=== PATIENT | female | born 1995 | race Caucasian/White ===

== ENCOUNTER 2018-01-09 19:09 | Emergency (ER) | payer OTHER ==
[2018-01-09 19:18] VITALS: BP 145/87; PULSE 84; RESP 16; TEMP 98.5; O2SAT 97
--- NOTE | 2018-01-09 20:09 | C.PDOC ---
History Of Present Illness 22 yo female c/o right arm pain s/p trip and fall in her room just prior to arrival. Notes she fell on her right arm and now has pain with movement. No change in sensation. Right hand dominant. States "I think I sprained it." Time Seen by Provider: 01/09/18 19:20 Chief Complaint (Nursing): Upper Extremity Problem/Injury History Per: Patient History/Exam Limitations: no limitations Onset/Duration Of Symptoms: Mins Current Symptoms Are (Timing): Still Present Past Medical History Vital Signs: Last Vital Signs Temp 98.5 F 01/09/18 19:13 Pulse 84 01/09/18 19:13 Resp 16 01/09/18 19:13 BP 145/87 01/09/18 19:13 Pulse Ox 97 01/09/18 20:09 Family History: States: Unknown Family Hx - Social History Hx Alcohol Use: Yes Hx Substance Use: No Review Of Systems Constitutional: Negative for: Fever Cardiovascular: Negative for: Chest Pain Musculoskeletal: Positive for: Arm Pain Neurological: Negative for: Weakness, Numbness Physical Exam - Physical Exam Appears: Well, Non-toxic, No Acute Distress Skin: Normal Color, Warm, Dry Head: Atraumatic, Normacephalic Eye(s): bilateral: Normal Inspection, PERRL, EOMI Nose: Normal Oral Mucosa: Moist Neck: Normal, Normal ROM, Supple Chest: Symmetrical Respiratory: No Accessory Muscle Use Back: Normal Inspection Extremity: Normal ROM, Tenderness (proximal forearm and posterior elbow), Capillary Refill (<2 sec) Extremity: Bilateral: Normal Color And Temperature, Normal ROM Pulses: Left Radial: Normal, Right Radial: Normal Neurological/Psych: Oriented x3, Normal Speech, Normal Motor, Normal Sensation ED Course And Treatment O2 Sat by Pulse Oximetry: 97 - Other Rad Elbow XR X-Ray: Interpreted by Me, Viewed By Me Interpretation: No fx or dislocation, small anterior and posterior fat pad Progress Note: Emanuel wrap and sling applied. Pt was instructed RICe and follow up with ortho in1-2 days. Disposition - Disposition Referrals: Michael Blair MD [Staff Provider] - Disposition: HOME/ ROUTINE Disposition Time: 20:07 Condition: STABLE Additional Instructions: Rest, ice and elevate the area. Follow up with your primary medical doctor or clinic in 2-5 days for further evaluation. Take medications as prescribed. Return to the emergency department at any time if symptoms persist or worsen. Instructions: Elbow Sprain (ED) Forms: [employer] (Polish), Work Excuse - Clinical Impression Clinical Impression: Contusion of arm, right
--- NOTE | 2018-01-10 09:52 | RAD ---
PROCEDURE: Radiographs of the right elbow. HISTORY: r/o fx COMPARISON: No prior. FINDINGS: BONES: A radial head/neck impaction fracture with radio capitellar joint extension is present. JOINTS: Normal. No osteoarthritis. SOFT TISSUES: Soft tissue swell JOINT EFFUSION: Present OTHER FINDINGS: None. IMPRESSION: A radial head/neck impaction fracture with radio capitellar joint extension is present. . No dislocation. Associated effusion Comments: Findings were called in to the ER and directly discussed with Dr. Martinez on 01/10/2018 at 9:45 a.m.
--- NOTE | 2018-01-10 09:54 | RAD ---
PROCEDURE: Radiographs of the Right Forearm HISTORY: r/o fx COMPARISON: Same-day right elbow x-ray TECHNIQUE: Frontal and lateral views obtained. FINDINGS: BONES: A radial head/neck impaction fracture with radio capitellar joint extension is present. . No dislocation. JOINT SPACES: No arthrosis. Right elbow joint effusion present OTHER FINDINGS: None. IMPRESSION: A radial head/neck impaction fracture with radio capitellar joint extension is present. . No dislocation. Associated effusion Comments: Findings were called in to the ER and directly discussed with Dr. Martinez on 01/10/2018 at 9:45 a.m.
== END 2018-01-09 20:14 | disposition home or self-care (01) ==
LOC: C.ER 19:09
DX: S40.021A Contusion of right upper arm, initial encounter (principal); W01.0XXA Fall on same level from slipping, tripping and stumbling without subsequent striking against object, initial encounter

== ENCOUNTER 2018-01-10 10:27 | Emergency (ER) | payer OTHER ==
[2018-01-10 11:01] VITALS: RESP 20
--- NOTE | 2018-01-10 11:59 | C.PDOC ---
History Of Present Illness 22 yo female, presented to the emergency department last night with complaints of right arm pain s/p trip and fall in her room. Notes she fell on her right arm and now has pain with movement. No change in sensation. Right hand dominant. Patient was called back after being discharged due to fracture and need for splinting. Patient denies any new complaints at this time. Time Seen by Provider: 01/10/18 11:48 Chief Complaint (Nursing): Upper Extremity Problem/Injury History Per: Patient History/Exam Limitations: no limitations Current Symptoms Are (Timing): Still Present Past Medical History Reviewed: Historical Data, Nursing Documentation, Vital Signs Vital Signs: Last Vital Signs Temp 98.8 F 01/10/18 12:39 Pulse 61 01/10/18 12:39 Resp 20 01/10/18 12:39 BP 107/71 01/10/18 12:39 Pulse Ox 99 01/10/18 12:55 Family History: States: No Known Family Hx - Social History Hx Alcohol Use: Yes Hx Substance Use: No - Immunization History Hx Tetanus Toxoid Vaccination: No Hx Influenza Vaccination: No Hx Pneumococcal Vaccination: No Review Of Systems Constitutional: Negative for: Fever Musculoskeletal: Positive for: Arm Pain Neurological: Negative for: Weakness, Numbness Physical Exam - Physical Exam Appears: Non-toxic, No Acute Distress Skin: Warm, Dry, No Ecchymosis Head: Atraumatic, Normacephalic Eye(s): bilateral: Normal Inspection Neck: Normal ROM Chest: Symmetrical Extremity: Capillary Refill (<2 seconds), No Deformity, No Swelling, Other ( Tenderness to lateral and dorsal elbow, swellint to right elbow, limited ROM secondary to pain) Pulses: Right Radial: Normal Neurological/Psych: Oriented x3, Normal Speech Gait: Steady ED Course And Treatment O2 Sat by Pulse Oximetry: 99 (RA) Pulse Ox Interpretation: Normal Medical Decision Making Medical Decision Making: Impression 22y/o F called back to ER for fracture to R elbow Plan: * Splinting R elbow Posterior orthopglass splint applied to right elbow by renal technician and checked by me. Arm slin applied. Patient discharged for outpatient f/u with ortho/PMD. All questions answered. Patient agrees with plan. Disposition Counseled Patient/Family Regarding: Diagnosis, Need For Followup, Rx Given - Disposition Referrals: Michael Blair MD [Staff Provider] - Disposition: HOME/ ROUTINE Disposition Time: 12:35 Condition: STABLE Additional Instructions: Your xray shows a fracture. It is very important you follow up with orthopedic within 1-4 days. A splint has been applied which is a temporary cast. Do not wet splint, keep out of bath, and consider plastic bag. Take pain medication as needed. Seek medical attention if develop any numbness or pins and needle sensation. Prescriptions: oxyCODONE/Acetaminophen [Percocet 5/325 mg Tab] 1 tab PO QID PRN #20 tab PRN Reason: Pain, Severe (8-10) Instructions: Elbow Fracture (DC) Forms: [employer] ([place]) - POA Present On Arrival: None - Clinical Impression Clinical Impression: Elbow fracture, right - Scribe Statement The provider has reviewed the documentation as recorded by the Scribe (Gisella Carter)
[2018-01-10 12:39] VITALS: BP 107/71; PULSE 61; TEMP 98.8
[2018-01-10 12:50] VITALS: O2SAT 99
== END 2018-01-10 12:40 | disposition home or self-care (01) ==
LOC: C.ER 10:27
DX: S42.401G Unspecified fracture of lower end of right humerus, subsequent encounter for fracture with delayed healing (principal); W01.0XXD Fall on same level from slipping, tripping and stumbling without subsequent striking against object, subsequent encounter